=== PATIENT | female | born 1960 | race Caucasian/White ===

== ENCOUNTER 2017-05-13 15:52 | Outpatient (CLI) | payer OTHER ==
--- NOTE | 2017-05-14 15:05 | XRAY Report ---
EXAM: LUMBOSACRAL SPINE RADIOGRAPHY EXAM DATE: 05/13/2017 04:16 PM. CLINICAL HISTORY: LOW BACK PAIN WITH RADICULAR SYMPTOMS. COMPARISONS: 08/11/2009. TECHNIQUE: 3 views. FINDINGS: Alignment: Normal. No spondylolisthesis or scoliosis. Bones: Five [id number] lumbar vertebral bodies are present. No fractures or bone lesions. Disks: Mild degenerative disk disease. Facets: Mild facet arthropathy. Sacroiliac Joints: Unremarkable. Soft Tissues: Normal. The visualized bowel gas pattern is normal. IMPRESSION: Mild degenerative changes. No evidence of interval compression fracture. [facility] Referring Provider Line: [phone] SITE ID: [id number]
== END 2017-05-13 15:53 | disposition home or self-care (01) ==
LOC: DI.S 15:52
PROVIDERS: ATTEND Physician Assistant
DX: M54.5 Low back pain (principal); M51.36 Other intervertebral disc degeneration, lumbar region
CPT/HCPCS: 72100

== ENCOUNTER 2018-11-06 09:30 | Outpatient (CLI) | payer BC, OTHER ==
--- NOTE | 2018-11-07 11:34 | Ultrasound Report ---
Reason: FAMILY HISTORY OF AORTIC ANEURYSM ISCHEMIC HEART Procedure Date: 11/06/2018 Accession Number: [id number] / [id number] Procedure: US - Aorta Screening CPT Code: FULL RESULT: EXAM: AORTIC DOPPLER ULTRASOUND EXAM DATE: 11/06/2018 09:44 AM. CLINICAL HISTORY: Family history of aortic aneurysm. Ischemic heart. COMPARISON: None. TECHNIQUE: Real-time sonographic imaging of retroperitoneal vascular structures, including color-flow, Doppler flow and spectral analysis was performed by the section leader. Multiple hospital sales representative static images were saved for review. FINDINGS: Aorta: The abdominal aorta was adequately visualized. No evidence for abdominal aortic aneurysm. Mild atheromatous plaques are noted. Aorta: Proximal: Sagittal AP: 2.1 cm. Mid: Transverse: 2.0 x 2.0 cm. Distal: Transverse: 1.6 x 1.8 cm. Iliacs: Right Iliac: Transverse: 0.9 x 1.1 cm. Left Iliac: Transverse: 0.9 x 1.0 cm. Iliac Vessels: The visualized proximal common iliac arteries are normal in caliber. Other: Incidental multiple simple liver cysts are noted. IMPRESSION: No abdominal aortic aneurysm. [facility]
== END 2018-11-06 09:31 | disposition home or self-care (01) ==
LOC: DI 09:30
PROVIDERS: ATTEND Physician Assistant
DX: Z82.49 Family history of ischemic heart disease and other diseases of the circulatory system (principal)
CPT/HCPCS: 76706

== ENCOUNTER 2021-04-30 08:00 | Outpatient (CLI) | payer BC ==
--- NOTE | 2021-04-30 10:58 | XRAY Report ---
PROCEDURE: Shoulder 2 View LT INDICATIONS: LEFT SHOULDER PAIN TECHNIQUE: 3 views of the shoulder were acquired. COMPARISON: None. FINDINGS: Bones: No fractures or dislocations. No suspicious bony lesions. Visualized ribs appear intact. M oderate to severe acromioclavicular degenerative narrowing. Humeral head is high riding. Soft tissues: No suspicious soft tissue calcifications. IMPRESSION: 1. High riding humeral head which can be seen with rotator cuff pathology. 2. Acromioclavicular degenerative narrowing. Reviewed by: hSaron Cardona MD on 04/30/2021 10:57 AM PDT Approved by: Sharon Cardona MD on 04/30/2021 10:57 AM PDT Station ID: [id number]
--- NOTE | 2021-04-30 11:22 | XRAY Report ---
PROCEDURE: Cervical Spine 2 View INDICATIONS: Radiculopathy TECHNIQUE: 2 view(s) of the cervical spine were acquired. COMPARISON: None. FINDINGS: Straightening of the usual cervical lordosis. Disc height loss at C5-C6 with posterior osteophytic ri dging of the endplates, facet hypertrophy, and uncovertebral hypertrophy. No significant degenerative change at the remaining levels. No suspicious lytic or blastic osseous lesion. Regional soft tissues demonstrate no significant abnormality. IMPRESSION: Degenerative changes at C5-C6. Correlate for any associated C6 radicular symptoms. MRI m ay be helpful to assess for neural foraminal narrowing at this level. Reviewed by: John Gutierrez MD on 04/30/2021 11:21 AM PDT Approved by: John Gutierrez MD on 04/30/2021 11:21 AM PDT Station ID: [id number]
== END 2021-04-30 23:59 | disposition home or self-care (01) ==
LOC: DI.S 08:00
PROVIDERS: ATTEND Nurse Practitioner Family
DX: M19.012 Primary osteoarthritis, left shoulder (principal); R93.6 Abnormal findings on diagnostic imaging of limbs; M47.22 Other spondylosis with radiculopathy, cervical region; M50.122 Cervical disc disorder at C5-C6 level with radiculopathy

== ENCOUNTER 2022-03-02 09:20 | Outpatient (CLI) | payer OTHER ==
[2022-03-02 14:12] LABS: BASOPHILS # (AUTO) 0.1 10^3/uL (0.0-0.1); EOSINOPHILS # (AUTO) 0.2 10^3/uL (0.0-0.7); EOSINOPHILS % (AUTO) 2.1 %; HCT - HEMATOCRIT 45.4 % (37.0-47.0); LYMPHOCYTES # (AUTO) 2.4 10^3/uL (1.5-3.5); LYMPHOCYTES % (AUTO) 33.2 %; MEAN CORPUSCULAR VOLUME 93.8 fL (81.0-99.0); MEAN PLATELET VOLUME 9.1 fL (7.9-10.8); MONOCYTES # (AUTO) 0.5 10^3/uL (0.0-1.0); MONOCYTES % (AUTO) 7.1 %; NEUTROPHILS # (AUTO) 4.1 10^3/uL (1.5-6.6); NEUTROPHILS % (AUTO) 55.8 %; PLT - PLATELET COUNT 271 10^3/uL (130-450); RED BLOOD COUNT 4.84 10^6/uL (4.20-5.40); RED CELL DISTRIBUTION WIDTH 13.3 % (12.0-15.0); WHITE BLOOD COUNT 7.3 x10^3/uL (4.8-10.8)
[2022-03-02 14:28] LABS: ALBUMIN 3.8 g/dL (3.2-5.5); ALBUMIN/GLOBULIN RATIO 1.1 (1.0-2.2); ALKALINE PHOSPHATASE 87 IU/L (42-121); ALT ALANINE AMINOTRANSFERASE 24 IU/L (10-60); AST ASPARTATE AMINOTRANSFERASE 21 IU/L (10-42); BILIRUBIN,TOTAL 0.8 mg/dL (0.2-1.0); BUN - BLOOD UREA NITROGEN 15 mg/dL (6-20); CARBON DIOXIDE - CO2 27 mmol/L (21-32); CHLORIDE 105 mmol/L (101-111); CHOLESTEROL 283 mg/dL; CREATININE 0.8 mg/dL (0.4-1.0); GFR - MDRD 73 (>89); GLUCOSE 109 mg/dL (70-100); HDL CHOLESTEROL 57 mg/dL; LDL CHOLESTEROL,CALCULATED 202 mg/dL; LDL/HDL RATIO 3.5 (<4.4); POTASSIUM 4.3 mmol/L (3.5-5.0); SODIUM 140 mmol/L (135-145); TOTAL PROTEIN 7.2 g/dL (6.7-8.2); TRIGLYCERIDES 120 mg/dL; VLDL CHOLESTEROL 24 mg/dL
== END 2022-03-02 09:21 | disposition home or self-care (01) ==
LOC: LAB.S 09:20
PROVIDERS: ATTEND Nurse Practitioner Psychiatric/Mental Health
DX: F33.9 Major depressive disorder, recurrent, unspecified (principal); F41.1 Generalized anxiety disorder; Z79.899 Other long term (current) drug therapy
CPT/HCPCS: 36415; 80053; 80061; 83721; 84443; 85025

== ENCOUNTER 2024-03-02 12:43 | Outpatient (CLI) | payer OTHER | END 2024-03-02 23:59 | disposition critical access hospital (66) | LOC: EMS 12:43 | DX: R00.2 Palpitations (principal); R42 Dizziness and giddiness; Z56.6 Other physical and mental strain related to work | CPT/HCPCS: A0425; A0429 ==

== ENCOUNTER 2024-03-02 13:15 | Emergency (ER) | payer OTHER ==
--- NOTE | 2024-03-02 13:33 | ED Physician Documentation ---
History of Present Illness - Stated complaint Stated Complaint: DIZZY - History obtained from History obtained from: Patient, EMS - Additonal information Additional information: The patient is brought to the emergency department by EMS for chief complaint of lightheadedness and high blood pressure. 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 She feels as though her heart was pounding and she took her blood pressure and it was over 200 systolic. The patient states that she sat down and a coworker asked her if she felt okay. The patient thinks that the symptoms lasted approximately 45 minutes before finally settling down on their own. She denies any chest pain or shortness of breath, but states that after she saw her blood pressure reading, she began to feel very anxious. The patient states she is otherwise fairly healthy. She takes hydrochlorothiazide 12.5 mg for hypertension and Paxil for anxiety. She denies any cardiac history in herself or her family. She has never been a smoker. She has not been ill with anything recently. She feels completely back to normal now. 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 - Allergies Allergies/Adverse Reactions: Allergies Allergy/AdvReac Type Severity Reaction Status Date / Time No Known Drug Allergies Allergy Verified 03/02/24 13:30 - Social History Does the pt smoke?: No Smoking Status: Never smoker Does the pt drink ETOH?: Yes ETOH Use: Wine PD ED PE NORMAL - Vitals Vital signs reviewed: Yes - General General: Alert and oriented X 3, No acute distress, Well developed/nourished - HEENT HEENT: Atraumatic, EOMI, Moist mucous membranes - Neck Neck: Supple, no meningeal sign - Cardiac Cardiac: RRR, No murmur, Strong equal pulses - Respiratory Respiratory: No respiratory distress, Clear bilaterally - Abdomen Abdomen: Soft, Non tender, Non distended - Derm Derm: Normal color, Warm and dry, No rash - Extremities Extremities: No deformity, No edema, No calf tenderness / cord - Neuro Neuro: Alert and oriented X 3, Other (Grossly intact. ) - Psych Psych: Normal mood, Normal affect Results - Vitals Vitals: Vital Signs - 24 hr 03/02/24 13:22 Temperature 36.6 C Heart Rate 77 Respiratory 19 Rate Blood Pressure 159/76 H O2 Saturation 100 Oxygen O2 Source Room air - EKG (time done) 1336 EKG releavant findings:: EKG personally interpreted by author of this note. Relevant findings are: Rate: Rate (enter#) (68) Rhythm: NSR [place]: Normal Intervals: Normal [place] QRS: Normal Ischemia: Normal ST segments Compare to prior EKG: Old EKG unavailable Computer interpretation: Agree with computer - Labs Labs: Laboratory Tests 03/02/24 03/02/24 13:40 13:40 WBC 6.8 RBC 4.80 Hgb 14.6 Hct 44.0 MCV 91.7 MCH 30.4 MCHC 33.2 RDW 13.2 Plt Count 249 MPV 8.9 Neut # (Auto) 4.0 Lymph # (Auto) 1.9 Rhea # (Auto) 0.7 Eos # (Auto) 0.2 Baso # (Auto) 0.1 Absolute Nucleated RBC 0.00 Nucleated RBC % 0.0 Sodium 140 Potassium 3.6 Chloride 108 Carbon Dioxide 26 Anion Gap 6.0 BUN 14 Creatinine 0.7 Estimated GFR (MDRD) 85 L Glucose 102 Calcium 9.3 Total Bilirubin 0.5 AST 18 ALT 19 Alkaline Phosphatase 82 Troponin I High Sens 2.8 Total Protein 6.9 Albumin 4.1 Globulin 2.8 Albumin/Globulin Ratio 1.5 Lipase 31 PD Medical Decision Making - ED course Complexity details: reviewed results, re-evaluated patient, considered differential, d/w patient ED course: The patient was very well-appearing in the emergency department and symptoms had completely subsided but I did feel she should be worked up for her episode. She was given a liter of 0.9 normal saline and worked up with labs including serial troponins, and EKG. The initial workup was unremarkable. A repeat troponin will be planned for around 1530. The patient has been signed out to my partner at change of shift, pending this.
[2024-03-02] MEDS: SODIUM CHLORIDE 0.9% 1,000 ML IV STA (13:43)
[2024-03-02 13:47] LABS: BASOPHILS # (AUTO) 0.1 10^3/uL (0.0-0.1); EOSINOPHILS # (AUTO) 0.2 10^3/uL (0.0-0.7); EOSINOPHILS % (AUTO) 2.5 %; HGB - HEMOGLOBIN 14.6 g/dL (12.0-16.0); LYMPHOCYTES # (AUTO) 1.9 10^3/uL (1.5-3.5); LYMPHOCYTES % (AUTO) 27.8 %; MEAN CORPUSCULAR HEMOGLOBIN 30.4 pg (27.0-31.0); MEAN CORPUSCULAR HGB CONC 33.2 g/dL (32.0-36.0); MEAN CORPUSCULAR VOLUME 91.7 fL (81.0-99.0); MEAN PLATELET VOLUME 8.9 fL (7.9-10.8); MONOCYTES # (AUTO) 0.7 10^3/uL (0.0-1.0); MONOCYTES % (AUTO) 9.5 %; NEUTROPHILS % (AUTO) 58.6 %; PLT - PLATELET COUNT 249 10^3/uL (130-450); RED CELL DISTRIBUTION WIDTH 13.2 % (12.0-15.0); WHITE BLOOD COUNT 6.8 x10^3/uL (4.8-10.8)
[2024-03-02 14:03] LABS: ALBUMIN 4.1 g/dL (3.2-5.5); ALBUMIN/GLOBULIN RATIO 1.5 (1.0-2.2); BILIRUBIN,TOTAL 0.5 mg/dL (0.2-1.0); CALCIUM 9.3 mg/dL (8.5-10.3); CREATININE 0.7 mg/dL (0.6-1.3); POTASSIUM 3.6 mmol/L (3.5-4.5); TOTAL PROTEIN 6.9 g/dL (6.4-8.9)
[2024-03-02 14:08] LABS: TROPONIN I HIGH SENSITIVITY 2.8 ng/L (2.3-14.8)
[2024-03-02 15:51] VITALS: O2SAT 99
--- NOTE | 2024-03-02 17:01 | ED Physician Documentation ---
ED Addendum - Addendum Addendum: 03/02/24 17:[address] Moore at shift change pending a second troponin. This is done and flat/negative. Patient seen and examined at the bedside. She is asymptomatic and request discharge. Counseled on follow-up and return precautions. Disposition: Discharged home Condition: Stable Diagnosis: 1. Resolved dizziness.
[2024-03-02 17:16] VITALS: BP 132/76
== END 2024-03-02 17:07 | disposition home or self-care (01) ==
LOC: EDUNIT# → ED 13:15
DX: R42 Dizziness and giddiness (principal)
CPT/HCPCS: 36415; 80053; 83690; 84484; 85025; 93005; 99283